=== PATIENT | male | born 1975 | race Caucasian/White ===

== ENCOUNTER 2016-10-21 14:05 | Emergency (ER) | payer OTHER ==
[~2016-10-21] VITALS: Ht 180.3 cm; Wt 100.0 kg
[2016-10-21 16:29] LABS: BASOPHILS % 0.6 % (0.0-2.0); EOSINOPHILS % 1.2 % (0.0-5.0); HEMATOCRIT. 40.8 % (42.0-52.0); HEMOGLOBIN. 13.7 g/dL (14.0-18.0); LYMPHOCYTES % 21.3 % (20.0-50.0); MEAN CORPUSCULAR HEMOGLOBIN 28.3 pg (28.0-32.0); MEAN CORPUSCULAR VOLUME 84.4 fL (80.0-94.0); MONOCYTES % 5.8 % (2.0-8.0); NEUTROPHILS % 71.1 % (40.0-76.0); PLATELET 270 x1000/uL (130-400); RED BLOOD CELL COUNT 4.83 mill/uL (4.7-6.1); RED CELL DISTRIBUTION WIDTH 13.7 % (11.6-14.6)
[2016-10-21 16:30] LABS: CHLORIDE 103 mEq/L (98-107)
[2016-10-21 16:37] LABS: CARBON DIOXIDE 30 mEq/L (21-32)
[2016-10-21] MEDS ORDERED: SODIUM CHLORIDE 0.9% 1,000 ML IV ONE (18:00)
[2016-10-21 22:07] VITALS: BP 128/69
== END 2016-10-21 22:08 | disposition home or self-care (01) ==
LOC: ER 15:44
DX: R04.0 Epistaxis (principal); R55 Syncope and collapse; J34.2 Deviated nasal septum; R32 Unspecified urinary incontinence
CPT/HCPCS: 30901; 36415; 80048; 85025; 93005; 96360; 99285; J7030

== ENCOUNTER 2016-10-23 23:30 | Emergency (ER) | payer OTHER ==
[~2016-10-23] VITALS: Ht 177.8 cm; Wt 100.0 kg
[2016-10-24 02:50] VITALS: BP 132/56
== END 2016-10-24 03:42 | disposition home or self-care (01) ==
LOC: ER 23:30
DX: R04.0 Epistaxis (principal)
CPT/HCPCS: 99281